=== PATIENT | male | born 1975 | race Hispanic/Latino ===

== ENCOUNTER → 2018-06-21 | Outpatient (CLI) | payer OTHER ==
--- NOTE | 2018-06-21 17:03 | Diagnostic Imaging Report ---
MRI of the right tibia/fibula without contrast. History: Calf pain. Trauma. [place] [facility] Technique: Multiplanar multisequence MRI of the right tibia/fibula without contrast. Comparison: None Findings: There is abnormal soft tissue edema at the posterior medial aspect of the calf with partial tearing of the fascia between the slowly as and medial gastrocnemius muscles. Fluid is seen extending from the proximal calf to the mid calf along the fascial plane. There is edema within the adjacent musculature consistent with a muscle strain/partial tear. No acute fracture, subluxation or avascular necrosis. No bone marrow edema is seen. The visualized neurovascular structures are intact. Impression: Strain/partial tear of the fascia and musculature at the posterior medial aspect of the calf with associated fluid/hemorrhage along the fascial plane. Signed by: Dr. Jesse Joseph M.D. on 06/21/2018 5:00 PM
== END ==
LOC: MRI 15:08
PROVIDERS: ATTEND Family Medicine
DX: S89.91XA Unspecified injury of right lower leg, initial encounter (principal)